=== PATIENT | female | born 1995 | race Two or more races ===

== ENCOUNTER 2020-03-25 11:07 | Outpatient (CLI) | payer OTHER | END 2020-03-25 11:18 | disposition home or self-care (01) | LOC: RAD 11:07 | DX: M43.8X5 Other specified deforming dorsopathies, thoracolumbar region (principal) ==

== ENCOUNTER 2021-01-22 17:24 | Emergency (ER) | payer OTHER ==
[~2021-01-22] VITALS: Ht 167.6 cm; Wt 59.0 kg
== END 2021-01-22 20:37 | disposition home or self-care (01) ==
LOC: ER 17:24
DX: S00.83XA Contusion of other part of head, initial encounter (principal); W22.8XXA Striking against or struck by other objects, initial encounter; Y93.89 Activity, other specified; Y92.018 Other place in single-family (private) house as the place of occurrence of the external cause; Y99.8 Other external cause status

== ENCOUNTER → 2023-07-13 14:56 | Outpatient (CLI) | payer OTHER ==
[~2023-07-13 14:56] MED LIST: DICLOFENAC POTA50 MG PO; METHOCARBAMOL500 MG PO
== END | disposition home or self-care (01) ==
LOC: PRENATAL 14:56
PROVIDERS: ATTEND Obstetrics & Gynecology Maternal & Fetal Medicine
DX: O36.80X0 Pregnancy with inconclusive fetal viability, not applicable or unspecified (principal); Z36.82 Encounter for antenatal screening for nuchal translucency; Z36.9 Encounter for antenatal screening, unspecified; Z3A.12 12 weeks gestation of pregnancy

== ENCOUNTER 2023-11-29 11:33 | Outpatient (CLI) | payer OTHER | END 2023-11-29 11:34 | disposition home or self-care (01) | LOC: PRENATAL 11:33 | PROVIDERS: ATTEND Obstetrics & Gynecology Maternal & Fetal Medicine | DX: O26.843 Uterine size-date discrepancy, third trimester (principal); O36.8130 Decreased fetal movements, third trimester, not applicable or unspecified; Z3A.32 32 weeks gestation of pregnancy ==

== ENCOUNTER 2024-01-10 17:51 | Inpatient (IN) | payer OTHER ==
[~2024-01-10] VITALS: Ht 167.6 cm; Wt 76.7 kg
[2024-01-10 17:09] VITALS: BP 108/75
[2024-01-10] MEDS ORDERED: ERYTHROMYCIN BASE OPHT 1GM EACH TUBE OP ONE (17:59)
[2024-01-10] MEDS ORDERED: LIDOCAINE HCL 1% 10ML VIAL ONE (17:59)
[2024-01-10] MEDS ORDERED: CHLORHEXIDINE GLUCONATE 120 ML BOTTLE TOP ONE (17:59)
[2024-01-10] MEDS ORDERED: OXYTOCIN 20 UNITS/1000ML RL PIGGYBAG IV ONE (17:59)
[2024-01-10] MEDS ORDERED: PRENATAL TABLE1 EAC1 PO (18:05)
[2024-01-10] MEDS ORDERED: OXYTOCIN 20 UNITS/500ML RL PIGGYBAG IV ONE (18:26)
[2024-01-10 18:28] LABS: HEMATOCRIT 33.2 % (36.0-45.00); HEMOGLOBIN 11.3 g/dL (12.0-15.00); MEAN CELL VOLUME 88.9 fL (80.00-100.00); MEAN CORPUSCULAR HEMOGLOBIN 30.3 pg (27.00-32.0); MEAN CORPUSCULAR HGB CONC 34.1 g/dl (32.0-36.0); PH,URINE 6.5 (5.0-8.0); PLATELET COUNT 226 K/uL (150-450); RED BLOOD COUNT 3.73 M/uL (4.00-6.00); RED CELL DISTRIBUTION WIDTH 13.7 % (11.5-14.5); URINE APPEARANCE Clear; URINE BILIRRUBIN Negative (NEGATIVE); URINE BLOOD Large; URINE COLOR Yellow; URINE GLUCOSE Negative (NEGATIVE); URINE KETONE Negative (NEGATIVE); URINE LEUKOCYTE Large; URINE NITRATE Negative; URINE PROTEIN Negative (NEGATIVE); URINE UROBILINOGEN 0.2 E.U./dl
[2024-01-10 18:31] LABS: URINE BACTERIA 1945.4 uL (0.0-1933); URINE EPITHELIAL CELLS 37.5 uL (0.0-38.8); URINE WBC 331.9 uL (0.0-23.2)
[2024-01-10 18:51] LABS: URINE RBC 1.3 uL (0.0-20.8)
[2024-01-10 18:52] LABS: INR < 0.93; PARTIAL THROMBOPLASTIN TIME 27.6 SECONDS (22.0-34.0); PROTHROMBIN TIME 9.9 SECONDS (9.0-11.5); URINE YEAST FEW /hpf
[2024-01-10 18:56] LABS: BILIRUBIN TOTAL 0.38 mg/dL (0.3-1.2); CALCIUM 9.2 mg/dL (8.5-10.1); CREATININE SERUM 0.63 mg/dL (0.55-1.02); GFR 110.95; GLOBULINA 3.6 G/DL (2.4-3.5); POTASSIUM 3.97 mEq/L (3.5-5.1); TOTAL PROTEIN 6.6 gm/dL (6.4-8.2)
[2024-01-10] MEDS ORDERED: OXYTOCIN 500 ML IV SCH (23:15)
[2024-01-10] MEDS ORDERED: RINGERS SOLUTION,LACTATED 1,000 ML IV SCH (23:30)
[2024-01-11] VITALS (8 sets, daily range): BP systolic 100–117; BP diastolic 65–78
[2024-01-11] MEDS ORDERED: IBUprofen 600 MG TABLET PO SCH (00:30)
[2024-01-11] MEDS ORDERED: OXYTOCIN 1,000 ML IV SCH (01:15)
[2024-01-11] MEDS ORDERED: CHLORHEXIDINE GLUCONATE 120 ML BOTTLE TOP ONE (01:15)
[2024-01-11] MEDS ORDERED: LIDOCAINE HCL 1% 10ML VIAL PERCUT ONE (01:30)
[2024-01-11] MEDS ORDERED: ERYTHROMYCIN BASE OPHT 1GM EACH TUBE OP ONE (01:30)
[2024-01-12] VITALS: BP 118/72
[2024-01-12 09:17] VITALS: BP 106/73
[2024-01-12 16:55] VITALS: BP 111/71
== END 2024-01-12 17:58 | disposition home or self-care (01) | DRG 807 ==
LOC: LDR 17:51 → OB/GYN 17:51
PROVIDERS: Obstetrics & Gynecology; ADMIT Specialist; ATTEND Specialist
PROC: 4A1HXCZ Monitoring of Products of Conception, Cardiac Rate, External Approach (ICD-10-PCS; 2024-01-10)
PROC: 10E0XZZ Delivery of Products of Conception, External Approach (ICD-10-PCS; principal; 2024-01-11)
PROC: 0KQM0ZZ Repair Perineum Muscle, Open Approach (ICD-10-PCS; 2024-01-11)
DX: O70.1 Second degree perineal laceration during delivery (principal); Z37.0 Single live birth; Z3A.38 38 weeks gestation of pregnancy; Z20.822 Contact with and (suspected) exposure to COVID-19